=== PATIENT | female | born 1945 | race Caucasian/White ===

== ENCOUNTER 2019-02-02 16:52 | Emergency (ER) | payer OTHER ==
--- NOTE | 2019-02-02 17:22 | PDOC ---
History of Present Illness - General Chief Complaint: Injury Stated Complaint: FALL, RT SHOULDER, FACE INJURY Time Seen by Provider: 02/02/19 16:54 History Source: Patient Exam Limitations: No Limitations - History of Present Illness Initial Comments: 02/02/19 17:17 Anayh Gallagher is a 73F with PMH HTN, HLD, hypothyroidism presenting with a witnessed mechanical fall onto chin. Patient was walking into a [employer] today when she tripped on the sidewalk and fell onto her chin and right shoulder. Patient denies prodromal sx including weakness, dizziness, fever, chest pain, SOB. Patient is normally very careful and does not fall often, last fall >4 years ago. Not on AC. Reports some pain on her chin with some minor bleeding, as well as R shoulder pain with movement and tingling down arm. Denies dental issues or difficulty swallowing. Changes to vision or hearing. No prior injuries to the R shoulder. Past History - Past Medical History Allergies/Adverse Reactions: Allergies Allergy/AdvReac Type Severity Reaction Status Date / Time Penicillins Allergy Verified 02/02/19 16:54 Home Medications: Ambulatory Orders Levothyroxine [Synthroid -] 75 mcg PO DAILY 02/02/19 Metoprolol Succinate [Toprol Xl -] 12.5 mg PO DAILY 02/02/19 Oxycodone HCl/Acetaminophen [Percocet 5-325 mg Tablet] 1 - 2 tab PO Q6H #6 tablet MDD 3 02/02/19 Simvastatin 20 mg PO DAILY 02/02/19 COPD: No HTN: Yes Hypercholesterolemia: Yes Thyroid Disease: Yes - Suicide/Smoking/Psychosocial Hx Smoking History: Current every day smoker Have you smoked in the past 12 months: Yes Number of Cigarettes Smoked Daily: 5 Information on smoking cessation initiated: Yes Hx Alcohol Use: No Review of Systems - Review of Systems Able to Perform ROS?: Yes Is the patient limited Burmese proficient: No Constitutional: No: Symptoms Reported HEENTM: Yes: Other (chin pain). No: Blurred Vision, Nose Pain, Nose Bleeding, Mouth Pain, Dental Problems (has upper and lower dentures), Difficulty Swallowing Respiratory: No: Symptoms reported Cardiac (ROS): No: Symptoms Reported ABD/GI: No: Symptoms Reported : No: Symptoms Reported Musculoskeletal: Yes: Other (R shoulder pain). No: Back Pain, Neck Pain Integumentary: No: Symptoms Reported Neurological: Yes: Tingling (R arm). No: Headache, Numbness, Pre-Existing Deficit, Weakness Endocrine: No: Symptoms Reported Hematologic/Lymphatic: No: Symptoms Reported All Other Systems: Reviewed and Negative *Physical Exam - Vital Signs Last Vital Signs Temp Pulse Resp BP Pulse Ox 98.3 F 85 18 155/83 98 02/02/19 16:52 02/02/19 16:52 02/02/19 16:52 02/02/19 16:52 02/02/19 16:52 - Physical Exam General Appearance: Yes: Nourished, Appropriately Dressed, Obese. No: Apparent Distress HEENT: positive: EOMI, SUKUMAR, Normal ENT Inspection, Normal Voice, Symmetrical, TMs Normal, Pharynx Normal, Hearing Grossly Normal, Other (has upper and lower dentures in place, not broken). negative: Scleral Icterus (R), Scleral Icterus (L), Muffled/Hoarse voice, Pharyngeal Erythema, Tonsillar Exudate, Tonsillar Erythema Neck: positive: Trachea midline, Supple. negative: Tender, Rigid, Lymphadenopathy (R), Lymphadenopathy (L), Tender lateral, Tender midline Respiratory/Chest: positive: Lungs Clear, Normal Breath Sounds. negative: Respiratory Distress, Crackles, Rales, Rhonchi Cardiovascular: positive: Regular Rhythm, Regular Rate. negative: Murmur Gastrointestinal/Abdominal: positive: Normal Bowel Sounds, Soft, Protuberent. negative: Tender, Guarding, Rebound Musculoskeletal: positive: Normal Inspection Extremity: positive: Other (R shoulder: full ROM to passive motion with no pain , limited active flexion, no obvious dislocation, no bony tenderness, no bruising. R elbow and R wrist full ROM no pain. Radial pulse present, no bleeding. 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 LUE grossly normal.) Integumentary: positive: Normal Color, Dry, Warm Neurologic: positive: Fully Oriented, Alert, Normal Mood/Affect, Normal Response , Motor Strength 5/5, Other (gait normal) ED Treatment Course - RADIOLOGY Radiology Studies Ordered: Category Date Time Status FACIAL BONES CT W/O CONTRAST [CT] Stat CT Scan 02/02/19 17:14 Ordered Medical Decision Making - Medical Decision Making 02/02/19 17:17 Anahy Gallagher is a 73F with PMH HTN, HLD, hypothyroidism presenting with a witnessed mechanical fall onto chin. Concerned about injury to facial bones and ICH, getting CT face and head noncon. R shoulder pain concerning for dislocation vs. humeral fx vs. rotator cuff injury, will evaluate with XR R shoulder. Also getting CXR for concern for rib fx after fall, patient not reporting SOB or pain to chest wall. 02/02/19 18:22 CXR and R shoulder XR show no signs of acute pathology. 02/02/19 18:37 CT head and neck shows no acute pathologies. Good to go home with sling and RICE therapy. *DC/Admit/Observation/Transfer Diagnosis at time of Disposition: Fall Qualifiers: Encounter type: initial encounter Qualified Code(s): W19.XXXA - Unspecified fall, initial encounter Right shoulder pain Qualifiers: Chronicity: acute Qualified Code(s): M25.511 - Pain in right shoulder Chin injury Qualifiers: Encounter type: initial encounter Qualified Code(s): S09.93XA - Unspecified injury of face, initial encounter - Discharge Dispostion Disposition: HOME Condition at time of disposition: Stable Decision to Admit order: No - Prescriptions Prescriptions: Oxycodone HCl/Acetaminophen [Percocet 5-325 mg Tablet] 1 - 2 tab PO Q6H #6 tablet MDD 3 - Referrals Referrals: Gonzalez Jade DO [Staff Physician] - - Patient Instructions Printed Discharge Instructions: DI for Rotator Cuff Injury, How to Prevent Falls, DI for Prescription Opioid Use Additional Instructions: Today you were evaluated for a fall onto your chin as well as right shoulder pain. We have evaluated your chin, head, mouth, and face and do not suspect you have any broken bones. The CT scan of your head and face does not show any fractures, broken jaw, or blood inside your brain. The X-ray of your right shoulder does not show a broken arm or dislocated shoulder. The pain in your R shoulder is most likely a strained/swollen muscle that is painful. Please rest your right arm, do not do any heavy lifting or any activities that would make arm pain worse. Please cover it in ice, use ibuprofen (Motrin) every 4-6 hours for pain as needed. If pain becomes unmanageable on ibuprofen, we have provided you with some Percocet. We will give you an arm sling to allow you to rest your arm. However, please remember to move your shoulder as much as possible and in every direction to keep it from locking in place as it heals. For your chin, please keep the scrape clean with soap and water and eat soft foods to prevent pain with chewing. Please see your primary doctor in the next 3 days. If your arm does not improve , please follow-up with an orthopedic surgeon; a referral for Dr. Jade has been included. If you experience headache, nausea, vomiting, fevers, changes to your vision, memory loss, jaw pain, or any other new or concerning symptoms, please return to the closest emergency room. - Post Discharge Activity
[2019-02-02] MEDS ORDERED: morphine CARPU-JECT 2 MG/1 ML DISP.SYRIN IM ONE (17:33)
[2019-02-02] MEDS ORDERED: morphine SULFATE 4 MG/ML VIAL ONE (17:34)
[2019-02-02 18:04] VITALS: BP 155/83; PULSE 85; TEMP 98.3; BMI 35.6
--- NOTE | 2019-02-02 18:04 | PDOC ---
Attending Attestation - Resident Resident Name: Wero Gutierres - ED Attending Attestation I have performed the following: I have examined & evaluated the patient, The case was reviewed & discussed with the resident, I agree w/resident's findings & plan, Exceptions are as noted - HPI HPI: 02/02/19 18:02 Reviewed Residents HPI - Physicial Exam PE: 02/02/19 18:02 Reviewed Residents PE - Medical Decision Making 02/02/19 18:03 Mechanical trip and fall no prodrome landed on moya right shoulder minor head injury no abrasion now able to ambulate complaining per family of right shoulder pain mild chest wall pain chin pain We'll CT head and face x-ray shoulder and chest pain medication observe and reassess 02/02/19 18:57 No acute fracture dislocations noted we'll recommend icing all sore affected area or the follow-up [id number] Motrin and Percocet for severe pain as needed Findings, the need for follow-up and strict return instructions discussed with patient.
[2019-02-02] MEDS ORDERED: DIPHTH,PERTUSS(ACELL),TET 0.5 ML DISP.SYRIN IM ONE ×2 (19:02→19:04)
== END 2019-02-02 19:20 | disposition home or self-care (01) ==
LOC: FER 16:52
PROC: 3E023NZ Introduction of Analgesics, Hypnotics, Sedatives into Muscle, Percutaneous Approach (ICD-10-PCS; principal; 2019-02-02)
PROC: 3E0234Z Introduction of Serum, Toxoid and Vaccine into Muscle, Percutaneous Approach (ICD-10-PCS; 2019-02-02)
DX: M25.511 Pain in right shoulder (principal); S09.93XA Unspecified injury of face, initial encounter; W01.0XXA Fall on same level from slipping, tripping and stumbling without subsequent striking against object, initial encounter; Y93.89 Activity, other specified; Y92.89 Other specified places as the place of occurrence of the external cause; I10 Essential (primary) hypertension; E78.5 Hyperlipidemia, unspecified; E03.9 Hypothyroidism, unspecified
CPT/HCPCS: 70450-TC; 70486-TC; 71046-TC-FY; 73030-TC-RT-FY; 90715; 99282-25

== ENCOUNTER 2019-11-28 13:17 | Emergency (ER) | payer OTHER ==
[2019-11-28 13:24] VITALS: TEMP 97.5; BMI 35.6
[2019-11-28] MEDS ORDERED: IBUPROFEN 400 MG TABLET (FP) PO ONE ×2 (15:16→15:21)
[2019-11-28] MEDS ORDERED: METHOCARBAMOL 500 MG TABLET PO ONE (15:16)
[2019-11-28] MEDS ORDERED: METHOCARBAMOL 500 MG TABLET ONE (15:22)
[2019-11-28 16:54] VITALS: BP 155/86; PULSE 76
== END 2019-11-28 16:55 | disposition home or self-care (01) ==
LOC: FER 13:17
DX: M25.511 Pain in right shoulder (principal)
CPT/HCPCS: 71046-TC-FY; 72050-TC-FY; 73030-TC-RT-FY; 93005; 99284-25

== ENCOUNTER 2022-06-22 21:27 | Observation (INO) | payer OTHER ==
[2022-06-22 22:45] LABS: HEMATOCRIT 46.1 % (32.4-45.2); HEMOGLOBIN 16.3 G/dL (10.7-15.3); MCH 32.3 pg (25.7-33.7); MCHC 35.2 g/dl (32.0-36.0); MEAN CELL VOLUME 91.7 fl (80-96); MEAN PLT VOLUME 7.1 fl (7.5-11.1); PLATELET COUNT 243.2 10^3/uL (134-434); RBC 5.03 10^6/uL (3.60-5.2); RDW 13.6 % (11.6-15.6); WHITE BLOOD COUNT 13.5 10^3/uL (4.0-10.8)
[2022-06-22 23:04] LABS: ALBUMIN 3.8 g/dl (3.4-5.0); BILIRUBIN,TOTAL 1.2 mg/dl (0.2-1); CALCIUM 10.2 mg/dl (8.5-10); TOT PROT 6.9 g/dl (6.4-8.2)
[2022-06-23 01:51] LABS: URINE APPEARANCE CLOUDY; URINE BILIRUBIN NEGATIVE (NEGATIVE); URINE COLOR YELLOW; URINE GLUCOSE (UA) NEGATIVE (NEGATIVE); URINE KETONE TRACE (NEGATIVE); URINE LEUK ESTERASE NEGATIVE (NEGATIVE); URINE NITRITE NEGATIVE (NEGATIVE); URINE PROTEIN TRACE (NEGATIVE)
[2022-06-23] MEDS: SODIUM CHLORIDE 1,000 ML IV SCH (02:52)
[2022-06-23 06:20] VITALS: BMI 36.3
[2022-06-23] MEDS: LEVOTHYROXINE NA 100 MCG TABLET (FP) PO SCH (06:49)
[2022-06-23 08:34] LABS: BILIRUBIN,TOTAL 1.5 mg/dl (0.2-1); CALCIUM 9.3 mg/dl (8.5-10); CREATININE 0.8 mg/dl (0.55-1.3); TOT PROT 5.6 g/dl (6.4-8.2)
[2022-06-23 10:33] LABS: BASO % 0.6 % (0-2.0); EOS % 1.4 % (0-4.5); HEMOGLOBIN 13.7 GM/dL (10.7-15.3); LYMPH % 19.8 % (8-40); MCH 31.4 pg (25.7-33.7); MCHC 34.3 g/dl (32.0-36.0); MEAN CELL VOLUME 91.6 fl (80-96); MEAN PLT VOLUME 7.9 fl (7.5-11.1); MONO % 8.3 % (3.8-10.2); NEUT % 69.9 % (42.8-82.8); PLATELET COUNT 236 10^3/uL (134-434); RBC 4.36 M/mm3 (3.60-5.2); RDW 13.6 % (11.6-15.6); WHITE BLOOD COUNT 9.7 K/mm3 (4.0-10.0)
[2022-06-23] MEDS: POTASSIUM CHLORIDE TABS 20 MEQ TABLET.ER (FP) PO SCH ×2 (16:24→21:02)
[2022-06-23 20:03] VITALS: RESP 17
[2022-06-24 06:05] VITALS: BP 137/64; PULSE 87; TEMP 98.6
[2022-06-24] MEDS: SODIUM CHLORIDE 1,000 ML IV SCH (06:20)
[2022-06-24] MEDS: LEVOTHYROXINE NA 100 MCG TABLET (FP) PO SCH (06:20)
[2022-06-24 09:02] LABS: ALBUMIN 3.3 g/dl (3.4-5.0); BILIRUBIN,TOTAL 1.4 mg/dl (0.2-1); CALCIUM 9.7 mg/dl (8.5-10); CREATININE 0.9 mg/dl (0.55-1.3); MAGNESIUM 2.2 mg/dL (1.8-2.4); TOT PROT 6.1 g/dl (6.4-8.2)
== END 2022-06-24 13:13 | disposition home or self-care (01) ==
LOC: FER 21:27 → FM/S 06-23 01:14
PROVIDERS: ADMIT Internal Medicine
PROC: 3E0337Z Introduction of Electrolytic and Water Balance Substance into Peripheral Vein, Percutaneous Approach (ICD-10-PCS; principal; 2022-06-23)
DX: S09.90XA Unspecified injury of head, initial encounter (principal); W18.39XA Other fall on same level, initial encounter; Y93.89 Activity, other specified; Y92.090 Kitchen in other non-institutional residence as the place of occurrence of the external cause; M54.2 Cervicalgia; Z87.891 Personal history of nicotine dependence; E66.8 Other obesity; Z68.36 Body mass index [BMI] 36.0-36.9, adult; E03.9 Hypothyroidism, unspecified; E83.51 Hypocalcemia; E87.6 Hypokalemia; Z88.0 Allergy status to penicillin
CPT/HCPCS: 0241U-QW; 36415; 70450-TC; 71045-TC-FY; 72125-TC; 80053; 80061; 81003; 82550; 82553; 83735; 84443; 84484; 85025; 85027; 93005; 93306-TC; 93880-TC; 96360; 99285-25; G0378